=== PATIENT | female | born 1985 | race Hispanic/Latino ===

== ENCOUNTER 2017-11-12 18:22 | Emergency (ER) | payer OTHER ==
[~2017-11-12] VITALS: Ht 170.2 cm; Wt 59.0 kg
[~2017-11-12 18:22] MED LIST: BACTRIM DS TAB1 EACH PO; DIFLUCAN150 M1 PO; FLEXERIL10 MG PO; IBU-6600 MG PO; IBUPROFEN800 M1 PO; MACROBID 100 M100 MG PO; NEXPLANON68 M1; PYRIDIUM200 M1 PO; TAMIFLU75 M1 PO; ULTRAM50 M1 PO; VICODIN5-300 PO
[2017-11-12 18:51] VITALS: BP 134/83
== END 2017-11-12 19:05 | disposition admitted as inpatient to this hospital (09) ==
LOC: ERH 18:22
DX: F32.9 Major depressive disorder, single episode, unspecified (principal)
CPT/HCPCS: 80307; 81025; G0480